=== PATIENT | male | born 2000 | race African-American/Black ===

== ENCOUNTER 2022-11-24 15:06 | Emergency (ER) | payer BC ==
[~2022-11-24] VITALS: Ht 172.7 cm; Wt 93.5 kg
[2022-11-24 15:07] VITALS: BP 135/77
[2022-11-24] MEDS ORDERED: RISP1TAB42 PO (15:17)
[2022-11-24] MEDS ORDERED: RISP0.5T21 PO (18:11)
== END 2022-11-24 18:41 | disposition home or self-care (01) ==
LOC: M ED 15:06
DX: Z76.0 Encounter for issue of repeat prescription (principal); F20.9 Schizophrenia, unspecified; E78.5 Hyperlipidemia, unspecified; R03.0 Elevated blood-pressure reading, without diagnosis of hypertension